=== PATIENT | male | born 2005 | race Caucasian/White ===

== ENCOUNTER 2023-04-27 10:12 | Emergency (ER) | payer BC, SELFPAY ==
--- NOTE | 2023-04-27 10:23 | ED.URI ---
HPI - URI/Sore Throat General Chief Complaint: Upper Respiratory Infection Stated Complaint: Chest Congestion/Cough/Runny Nose Source: patient, family and RN notes reviewed History of Present Illness HPI Narrative: 17 yo M presents to urgent care with mom at side. Pt states he has been congested, having a sore throat, and productive cough x 5-6 days. Pt's entire family has had similar symptoms this past week along with some 'bouts of vomiting and diarrhea. Pt states he was running subjective fevers earelier this week but that has improved. Pt reports chest congestion but denies any SOB or chest pain. Pt has been taking OTC cold medications without relief. Related Data Home Medications Medication Instructions Recorded Confirmed aripiprazole 15 mg tablet mg 04/27/23 bupropion HCl 150 mg 24 hr tablet, mg PO 04/27/23 extended release Allergies Allergy/AdvReac Type Severity Reaction Status Date / Time erythromycin base Allergy Unknown Verified 06/16/14 10:31 Review of Systems Review of Systems: Pertinent positives and pertinent negatives per HPI. PMFSH Comments At the time of my signature, I reviewed and agree with the nursing past medical, surgical, social, and family history. There is no relevant family history pertinent to the patient complaint. Exam Narrative: GENERAL: This is a well-nourished, well-developed patient, in no apparent distress. HEAD: normocephalic, atraumatic. EYES: Sclera clear/white. Vision is grossly intact. EARS: External ears normal, auditory canals clear and without drainage, TMs normal without perforation. Hearing grossly intact. NOSE: External nose normal with + congestion THROAT: Mucous membranes moist, posterior pharynx erythremic. NECK: Neck supple, non-tender without lymphadenopathy, masses or thyromegaly. CARDIOVASCULAR: Regular rate and rhythm without murmurs, gallops, or rubs. RESPIRATORY: Clear to auscultation. Breath sounds equal bilaterally. No wheezes, rales, or rhonchi. GASTROINTESTINAL: Abdomen soft, non-tender, nondistended. Bowel sounds are active. No hepato-splenomegaly, or palpable masses. No guarding. SKIN: warm, intact with no suspicious lesions or rash, good texture and turgor. NEURO: awake, alert, and oriented to person, place and time. There were no obvious focal neurologic abnormalities. Course Course Level of Care: Express Care Visit Vital Signs Vital signs: Vital Signs Temperature 99.3 F 04/27/23 10:24 Pulse Rate 99 04/27/23 10:24 Respiratory Rate 18 04/27/23 10:24 Blood Pressure 133/66 04/27/23 10:24 Pulse Oximetry 96 04/27/23 10:24 Oxygen Delivery Room Air 04/27/23 10:24 Temperature 99.3 F 04/27/23 10:24 Pulse Rate 99 04/27/23 10:24 Respiratory Rate 18 04/27/23 10:24 Blood Pressure 133/66 04/27/23 10:24 Pulse Oximetry 96 04/27/23 10:24 Oxygen Delivery Room Air 04/27/23 10:24 Reviewed MDM - URI/Sore Throat MDM Narrative Medical decision making narrative: Viral illness may last between 7-21 days; antibiotics do not cure viral illness and are NOT recommended at this time. Also, recommend symptomatic treatment includes: rest, fluids, and increase humidity of the air at home. Recommend Acetaminophen as directed on the bottle to reduce fever, pain, headache. Please schedule a follow-up visit with your personal physician for further evaluation and treatment within 3-5days. If your symptoms persist, change or worsen significantly before you can contact your personal physician then please, without delay, go to the emergency department for further evaluation. Differential Diagnosis Differential diagnosis: Likely upper respiratory infection, otitis media, sinusitis, viral infection, bronchitis and pharyngitis Lab Data Attestation: I reviewed the patient's lab results. Labs: Strep Screen Presumptive Negative *(Reference Range: Negative)* Crit
[2023-04-27 10:24] VITALS: BP 133/66; PULSE 99; RESP 18; TEMP 37.4; O2SAT 96
== END 2023-04-27 11:04 | disposition home or self-care (01) ==
PROVIDERS: Emergency Provider Nurse Practitioner Family; PCP Physician Assistant
DX: B34.9 Viral infection, unspecified (principal); K21.9 Gastro-esophageal reflux disease without esophagitis; F41.9 Anxiety disorder, unspecified
CPT/HCPCS: 87081; 87880; 99203; G0463

== ENCOUNTER 2024-05-07 11:14 | Emergency (ER) | payer BC, SELFPAY ==
--- NOTE | ~2024-05-07 | XR_ITS ---
EXAMINATION: XR chest 2V 05/07/2024 12:04 INDICATION: Cough. PROCEDURE: 2 view chest COMPARISON: 2003 FINDINGS: The lungs are clear. The cardiomediastinal silhouette is within normal limits. There are no pleural effusions. There is no pneumothorax suspected. IMPRESSION: 1: NO ACUTE CARDIOPULMONARY DISEASE. Reviewed, dictated and finalized at location [facility]. [employer]
[2024-05-07 11:19] VITALS: BP 124/75; PULSE 112; RESP 18; TEMP 37.1; O2SAT 97
--- NOTE | 2024-05-07 11:51 | ED.URI ---
HPI - URI/Sore Throat General Chief Complaint: Upper Respiratory Infection Stated Complaint: coughing up blood/pflem Time Seen by Provider: 05/07/24 11:42 Source: patient and RN notes reviewed Mode of arrival: ambulatory Limitations: no limitations History of Present Illness HPI Narrative: 18-year-old male presents with concern for 3-4 day history of productive cough. Reports blood tinged sputum last night. Reports runny nose and headache. MD elicited complaint: cough Related Data Home Medications Medication Instructions Recorded Confirmed aripiprazole 15 mg tablet mg 04/27/23 bupropion HCl 150 mg 24 hr tablet, mg PO 04/27/23 extended release Allergies Allergy/AdvReac Type Severity Reaction Status Date / Time erythromycin base Allergy Unknown Swelling Verified 05/07/24 11:31 Review of Systems Review of Systems: CONSTITUTIONAL: Denies malaise, chills, sweats, or fever. EYES: Denies visual changes, redness, or discharge. ENT: Reports rhinorrhea, congestion. Denies sinus pain, otalgia and sore throat. CARDIOVASCULAR: Denies chest pain, palpitations, or edema. RESPIRATORY: Reports cough. Denies dyspnea. GASTROINTESTINAL: Denies abdominal pain, nausea, vomiting, diarrhea SKIN: Denies rash or itching. MUSCULOSKELETAL: Denies myalgia. NEUROLOGIC: Reports headache. All systems reviewed & are unremarkable except as noted in HPI and below PMFSH Comments At time of signature, agree with nursing past medical, surgical, social and family history. There is no relevant family history pertinent to the presenting complaint Exam Narrative: GENERAL: Well-appearing, well-nourished, and in no acute distress. HEAD: Normocephalic EYES: PERRLA, conjunctivae clear ENT: Nares clear, turbinates edematous and erythematous, clear discharge. Mucous membranes moist. TM pearly castillo with dull light reflex bilaterally; no tragal tenderness. Oropharynx not erythematous without lesions. Tonsils not enlarged and without exudate, no drooling, no hoarseness, no trismus, uvula midline. NECK: Supple. No lymphadenopathy CHEST: Clear to auscultation, breath sounds diminished in the bases. No wheezing, rhonchi, rales, or stridor. No respiratory distress, speaks in full sentences. HEART: Regular rate and rhythm. No murmur heard. SKIN: Warm, dry, no rash. NEURO: Alert and oriented x3. PSYCH: Normal mood and affect Course Course Emergency Course: Patient is aware of diagnosis, understands and agrees to treatment plan. Anticipatory guidance given. Patient agrees to follow-up as directed and is aware of reasons to seek care at the emergency department. Portions of this record may have been created with voice recognition software Level of Care: Express Care Visit Vital Signs Vital signs: Vital Signs Temperature 98.7 F 05/07/24 11:19 Pulse Rate 112 H 05/07/24 11:19 Respiratory Rate 18 05/07/24 11:19 Blood Pressure 124/75 05/07/24 11:19 Pulse Oximetry 97 05/07/24 11:19 Oxygen Delivery Room Air 05/07/24 11:19 Temperature 98.7 F 05/07/24 11:19 Pulse Rate 112 H 05/07/24 11:19 Respiratory Rate 18 05/07/24 11:19 Blood Pressure 124/75 05/07/24 11:19 Pulse Oximetry 97 05/07/24 11:19 Oxygen Delivery Room Air 05/07/24 11:19 Reviewed. MDM - URI/Sore Throat MDM Narrative Medical decision making narrative: Differential diagnosis considered: Mcmanus virus, strep pharyngitis, allergic rhinitis, upper respiratory tract infection, sinusitis, rhinosinusitis, nasopharyngitis. viral pharyngitis, otitis media, otitis externa, pneumonia, bronchitis, viral cough syndrome, viral syndrome, and influenza. Exam findings show no acute concerns or changes; patient is non-toxic appearing and is in no distress. Patient is appropriate for outpatient treatment and follow-up. Lab Data Attestation: I reviewed the patient's lab results. Imaging Data My impression: Images reviewed, interpreted by radiologist, agree, see report. Radiologist's impression: EXAMINATION: XR chest 2V 05/07/2024 12:04 INDICATION: Cough. PROCEDURE: 2 view chest COMPARISON: 2003 FINDINGS: The lungs are clear. The cardiomediastinal silhouette is within normal limits. There are no pleural effusions. There is no pneumothorax suspected. IMPRESSION: 1: NO ACUTE CARDIOPULMONARY DISEASE. Critical Care Time Critical Care Time Critical Care Time: No Discharge Plan Discharge Clinical Impression: Bronchitis Patient Disposition: Home, Self-Care Condition: Stable Instructions: Acute Bronchitis (ED) Additional Instructions: Your chest x-ray looks normal Recommend antihistamine such as Benadryl at night time and Zyrtec or Erin during the day Cough syrup may cause drowsiness; avoid driving or take it at night time. Also, recommend symptomatic treatment includes: rest, fluids, and increase humidity of the air at home. Recommend Acetaminophen as directed on the bottle to reduce fever, pain, headache. Avoid smoking/second-hand smoke. Please schedule a follow-up visit with your personal physician for further evaluation and treatment within 3-5days. If your symptoms persist, change or worsen significantly before you can contact your personal physician then please, without delay, go to the emergency department for further evaluation. Prescriptions: New promethazine-DM 6.25-15 mg/5 mL syrup 5 ml PO Q4-6H PRN (Reason: cough) Qty: 120 0RF methylprednisolone [Medrol (Vito)] 4 mg tablets,dose pack See Rx Instructions .ROUTE .COMPLEX Qty: 21 0RF Rx Instructions: orally per package directions No Action aripiprazole 15 mg tablet bupropion HCl 150 mg tablet extended release 24 hr PO Follow-up/Referrals: PHYSICIAN,ADMINISTRATION VICE PRESIDENT [Primary Care Provider] - Stand Alone Forms: Work/School Release IP Time of Disposition: 12:28
== END 2024-05-07 12:32 | disposition home or self-care (01) ==
PROVIDERS: Emergency Provider Nurse Practitioner
DX: J40 Bronchitis, not specified as acute or chronic (principal); K21.9 Gastro-esophageal reflux disease without esophagitis
CPT/HCPCS: 71046; 99213; G0463